=== PATIENT | female | born 1970 | race Caucasian/White ===

== ENCOUNTER 2017-07-06 21:38 | Inpatient (IN) ==
[2017-07-06] MEDS ORDERED: NITROGLYCERIN 2% OINT 1 INCH/GM PACK TOP STA (22:15)
[2017-07-06] MEDS ORDERED: MORPHINE 2 MG/1 ML SYRINGE IV STA (22:15)
[2017-07-06] MEDS ORDERED: ASPIRIN 325 MG TABLET PO STA (22:15)
[2017-07-06] MEDS ORDERED: hydrALAZINE 20 MG/1 ML VIAL IV STA ×2 (22:15→23:37)
[2017-07-06] MEDS ORDERED: methylPREDNISolone SOD SUC 125 MG/2 ML VIAL IV STA (22:15)
[2017-07-06] MEDS ORDERED: FUROSEMIDE 100 MG/10 ML VIAL IV STA (22:15)
[2017-07-06] MEDS ORDERED: ONDANSETRON 4 MG/2 ML VIAL IV STA (22:15)
[2017-07-06] MEDS ORDERED: ALBUTEROL 2.5 MG/3 ML NEB RESP TX SCH (22:30)
[2017-07-06] MEDS ORDERED: FUROSEMIDE 100 MG/10 ML VIAL ONE (22:37)
[2017-07-06] MEDS ORDERED: hydrALAZINE 20 MG/1 ML VIAL ONE ×2 (22:37→23:51)
[2017-07-06] MEDS ORDERED: NITROGLYCERIN 2% OINT 1 INCH/GM PACK TOP ONE (22:37)
[2017-07-06] MEDS ORDERED: ASPIRIN 325 MG TABLET ONE (22:37)
[2017-07-06] MEDS ORDERED: ONDANSETRON 4 MG/2 ML VIAL ONE (22:37)
[2017-07-06] MEDS ORDERED: MORPHINE 2 MG/1 ML SYRINGE ONE (22:37)
[2017-07-06] MEDS ORDERED: methylPREDNISolone SOD SUC 125 MG/2 ML VIAL ONE (22:38)
[2017-07-06 22:40] LABS: Basophils # 0.1 10*3/uL (0.0-0.2); Basophils % 0.7 % (0.0-0.8); Eosinophils # 0.3 10*3/uL (0.0-0.87); Eosinophils % 2.4 % (0.00-10.9); Hematocrit 37.2 VOL% (35.7-47.0); Hemoglobin 12.1 GM/DL (12.0-16.0); Immature Granulocytes % 0.9 %; Immature Granulocytes Absolute 0.12 #; Lymphocytes # 1.6 10*3/uL (1.4-4.0); Lymphocytes % 11.9 % (21.3-54.2); Mean Corpuscular HGB Conc 32.5 GM/DL (32-36); Mean Corpuscular Hemoglobin 29 PG (27-34); Mean Corpuscular Volume 90.5 FL (87-102); Mean Platelet Volume 9.3 FL (9.6-12.0); Monocytes # 1.1 10*3/uL (0.11-0.8); Neutrophils # 10.4 10*3/uL (1.4-7.4); Neutrophils % 76.1 % (38.7-73.9); Platelet Count 291 T/CUMM (130-400); Red Blood Count 4.11 MC/CUMM (3.8-5.5); White Blood Count 13.6 T/CUMM (4-12)
[2017-07-06 23:06] LABS: INR 0.9; PT Patient Result 9.9 SECS
[2017-07-06] MEDS ORDERED: ALBUTEROL/IPRATROPIUM 3 ML NEB RESP TX STA (23:08)
[2017-07-06 23:12] LABS: Alanine Aminotransferase 48 U/L (13-56); Albumin 3.5 G/DL (3.4-5.0); Alkaline Phosphatase 106 U/L (45-117); Aspartate Amino Transferase 19 U/L (0-37); Bilirubin,Total < 0.39 MG/DL (0.2-1.0); Blood Urea Nitrogen 19 MG/DL (7-18); Calcium 8.8 MG/DL (8.5-10.1); Glucose 102 MG/DL (74-106); Magnesium 2.3 MG/DL (1.8-2.4); Osmolality,Calculated 287.8 MOS/KG (273-304); Potassium 3.8 MMOL/L (3.5-5.1); Sodium 144 MMOL/L (136-145); Total Protein 6.8 G/DL (6.4-8.3); Troponin I Only 0.019 NG/ML (0.00-0.045)
[2017-07-06 23:47] LABS: Apearance,Urine Slightly Hazy (Clear); Bacteria,Urine Moderate /HPF (Few); Bilirubin,Urine Negative (Negative); Blood, Urine Negative (Negative); Glucose,Urine (UA) Negative (Negative); Ketones,Urine Negative (Negative); Mucus,Urine Occasional /LPF (Occasional); Nitrite,Urine Negative (Negative); Protein,Urine 30 MG/DL; Squamous Epithelial Cell,Urine Occasional /HPF (0-10); Urine Color Straw (Yellow); Urine Specific Gravity 1.005 (1.001-1.035); Urine Urobilinogen < 2.0 EU/DL (0.2-1.0); WBC,Urine 2 /HPF (0-6)
[2017-07-07] MEDS ORDERED: ONDANSETRON 4 MG/2 ML VIAL IV PRN (01:28)
[2017-07-07] MEDS ORDERED: MORPHINE 2 MG/1 ML SYRINGE IV PRN (01:28)
[2017-07-07] MEDS ORDERED: hydrALAZINE 20 MG/1 ML VIAL IV PRN (01:28)
[2017-07-07] MEDS ORDERED: ASPIRIN 325 MG TABLET PO STA (01:38)
[2017-07-07] MEDS: SODIUM CHLORIDE 0.9% 1,000 ML IV SCH (01:57)
[2017-07-07] MEDS: ACETAMINOPHEN 325 MG TABLET PO PRN (04:51)
[2017-07-07 05:37] LABS: Basophils # 0.1 10*3/uL (0.0-0.2); Basophils % 0.5 % (0.0-0.8); Eosinophils % 0.2 % (0.00-10.9); Hematocrit 39.2 VOL% (35.7-47.0); Hemoglobin 12.5 GM/DL (12.0-16.0); Immature Granulocytes % 1.1 %; Immature Granulocytes Absolute 0.15 #; Lymphocytes % 7.6 % (21.3-54.2); Mean Corpuscular HGB Conc 31.9 GM/DL (32-36); Mean Corpuscular Hemoglobin 29 PG (27-34); Mean Corpuscular Volume 91.2 FL (87-102); Mean Platelet Volume 9.9 FL (9.6-12.0); Monocytes # 0.1 10*3/uL (0.11-0.8); Monocytes % 0.8 % (1.7-12.7); Neutrophils # 11.7 10*3/uL (1.4-7.4); Neutrophils % 89.8 % (38.7-73.9); Platelet Count 316 T/CUMM (130-400); Red Cell Distribution Width 13.2 % (9.3-17.3); White Blood Count 13.1 T/CUMM (4-12)
[2017-07-07] MEDS ORDERED: NITROGLYCERIN 2% OINT 1 INCH/GM PACK TOP SCH (06:00)
[2017-07-07 06:07] LABS: Albumin 3.5 G/DL (3.4-5.0); Bilirubin,Total 0.5 MG/DL (0.2-1.0); Calcium 8.5 MG/DL (8.5-10.1); Osmolality,Calculated 285.5 MOS/KG (273-304); Potassium 4.1 MMOL/L (3.5-5.1); Risk Ratio 5.33; Total Protein 7.4 G/DL (6.4-8.3); VLDL CHOLESTEROL 44.4 MG/DL
[2017-07-07] MEDS: ENOXAPARIN 40 MG/0.4 ML SYRINGE SUBCUT SCH (06:39)
[2017-07-07] MEDS: FUROSEMIDE 20 MG/2 ML VIAL IV SCH ×2 (08:48→15:17)
[2017-07-07] MEDS: ASPIRIN EC 325 MG TABLET PO SCH (08:51)
[2017-07-07] MEDS: DOCUSATE SODIUM 100 MG CAPSULE PO SCH ×2 (08:51→20:38)
[2017-07-07] MEDS: PANTOPRAZOLE 40 MG TABLET PO SCH (08:52)
[2017-07-07] MEDS: METOPROLOL TARTRATE 100 MG TABLET PO SCH ×2 (10:14→15:33)
[2017-07-07] MEDS: IRBESARTAN 150 MG TABLET PO SCH (10:14)
[2017-07-07] MEDS: hydroCHLOROthiazide 12.5 MG CAPSULE PO SCH (10:15)
[2017-07-07] MEDS: CARVEDILOL 25 MG TABLET PO SCH ×2 (15:46→20:38)
[2017-07-07] MEDS ORDERED: DOXAZOSIN 2 MG TABLET PO SCH ×2 (15:50→21:00)
[2017-07-07] MEDS: DOXAZOSIN 1 MG TABLET PO SCH ×2 (16:39→20:38)
[2017-07-07] MEDS ORDERED: ATORVASTATIN 20 MG TABLET PO SCH (21:00)
[2017-07-08 05:57] LABS: Basophils % 0.2 % (0.0-0.8); Eosinophils # 0.1 10*3/uL (0.0-0.87); Eosinophils % 0.6 % (0.00-10.9); Hematocrit 36.3 VOL% (35.7-47.0); Hemoglobin 11.3 GM/DL (12.0-16.0); Immature Granulocytes % 1.1 %; Immature Granulocytes Absolute 0.14 #; Lymphocytes # 2.4 10*3/uL (1.4-4.0); Lymphocytes % 18.8 % (21.3-54.2); Mean Corpuscular HGB Conc 31.1 GM/DL (32-36); Mean Corpuscular Hemoglobin 29 PG (27-34); Mean Platelet Volume 9.6 FL (9.6-12.0); Monocytes % 7.9 % (1.7-12.7); Neutrophils # 9.2 10*3/uL (1.4-7.4); Neutrophils % 71.4 % (38.7-73.9); Platelet Count 277 T/CUMM (130-400); Red Blood Count 3.86 MC/CUMM (3.8-5.5); Red Cell Distribution Width 13.5 % (9.3-17.3); White Blood Count 12.9 T/CUMM (4-12)
[2017-07-08] MEDS: ENOXAPARIN 40 MG/0.4 ML SYRINGE SUBCUT SCH (06:01)
[2017-07-08 06:25] LABS: Calcium 8.6 MG/DL (8.5-10.1); Magnesium 2.4 MG/DL (1.8-2.4); Osmolality,Calculated 292.1 MOS/KG (273-304); Potassium 3.7 MMOL/L (3.5-5.1)
[2017-07-08] MEDS ORDERED: ALBUTEROL/IPRATROPIUM 3 ML NEB RESP TX PRN (08:48)
[2017-07-08] MEDS ORDERED: FLUTICASONE 50 MCG NASAL SPRAY 16 GM BOTTLE BOTH NARES SCH (09:00)
[2017-07-08] MEDS: FUROSEMIDE 20 MG/2 ML VIAL IV SCH (09:45)
[2017-07-08] MEDS: hydroCHLOROthiazide 12.5 MG CAPSULE PO SCH (09:46)
[2017-07-08] MEDS: ASPIRIN EC 325 MG TABLET PO SCH (09:46)
[2017-07-08] MEDS: DOCUSATE SODIUM 100 MG CAPSULE PO SCH (09:46)
[2017-07-08] MEDS: IRBESARTAN 150 MG TABLET PO SCH (09:46)
[2017-07-08] MEDS: CARVEDILOL 25 MG TABLET PO SCH (09:46)
[2017-07-08] MEDS: PANTOPRAZOLE 40 MG TABLET PO SCH (09:46)
[2017-07-08] MEDS: DOXAZOSIN 1 MG TABLET PO SCH (09:47)
[2017-07-08] MEDS: ACETAMINOPHEN 325 MG TABLET PO PRN (09:51)
[2017-07-08] MEDS: SODIUM CHLORIDE 0.9% 1,000 ML IV SCH (14:54)
[2017-07-08 16:03] VITALS: BP 129/64
== END 2017-07-08 16:15 | disposition home or self-care (01) | DRG 305 ==
LOC: N.ED 21:38 → N.EDINP 07-07 00:25 → N.TELES 07-07 01:04 → N.TELEN 07-07 01:04
PROVIDERS: ADMIT Family Medicine; ATTEND Family Medicine

== ENCOUNTER 2019-04-18 06:30 | Observation (INO) ==
[2019-04-18] MEDS ORDERED: DIAZEPAM 5 MG TABLET PO ONE (07:33)
[2019-04-18] MEDS ORDERED: SODIUM CHLORIDE 0.45% 1,000 ML IV SCH (08:00)
[2019-04-18 08:51] LABS: Basophils # 0.1 10*3/uL (0.0-0.2); Basophils % 0.9 % (0.0-0.8); Eosinophils # 0.2 10*3/uL (0.0-0.87); Eosinophils % 3.9 % (0.00-10.9); Immature Granulocytes % 0.6 %; Immature Granulocytes Absolute 0.03 #; Mean Corpuscular Volume 95.1 FL (87-102); Mean Platelet Volume 9.9 FL (9.6-12.0); Monocytes % 9.9 % (1.7-12.7); Neutrophils % 66.7 % (38.7-73.9); Platelet Count 164 T/CUMM (130-400); Red Blood Count 2.63 MC/CUMM (3.8-5.5); Red Cell Distribution Width 12.5 % (9.3-17.3); White Blood Count 5.5 T/CUMM (4-12)
[2019-04-18 08:54] LABS: PT Patient Result 10.4 SECS (9.6-12.2); Partial Thromboplastin Time 25.7 SECS (20.8-36.0)
[2019-04-18] MEDS ORDERED: DIAZEPAM 5 MG TABLET ONE (08:58)
[2019-04-18 13:03] LABS: Basophils % 0.6 % (0.0-0.8); Eosinophils # 0.2 10*3/uL (0.0-0.87); Eosinophils % 3.4 % (0.00-10.9); Hematocrit 22.9 VOL% (35.7-47.0); Hemoglobin 7.2 GM/DL (12.0-16.0); Immature Granulocytes % 0.2 %; Immature Granulocytes Absolute 0.01 #; Lymphocytes # 0.9 10*3/uL (1.4-4.0); Lymphocytes % 19.6 % (21.3-54.2); Mean Corpuscular HGB Conc 31.4 GM/DL (32-36); Mean Corpuscular Volume 94.6 FL (87-102); Mean Platelet Volume 9.7 FL (9.6-12.0); Monocytes % 10.7 % (1.7-12.7); Neutrophils % 65.5 % (38.7-73.9); Platelet Count 155 T/CUMM (130-400); Red Blood Count 2.42 MC/CUMM (3.8-5.5); Red Cell Distribution Width 12.6 % (9.3-17.3); White Blood Count 4.7 T/CUMM (4-12)
[2019-04-18] MEDS ORDERED: DOCUSATE SODIUM 100 MG CAPSULE PO PRN (14:55)
[2019-04-18] MEDS ORDERED: ONDANSETRON 4 MG/2 ML VIAL IV PRN (14:55)
[2019-04-18] MEDS ORDERED: CLORAZEPATE 3.75 MG TABLET PO PRN (14:57)
[2019-04-18] MEDS ORDERED: ZALEPLON 5 MG CAPSULE PO PRN (14:57)
[2019-04-18] MEDS: ACETAMINOPHEN 325 MG TABLET PO PRN (16:46)
[2019-04-18 18:12] LABS: Hematocrit 22.8 VOL% (35.7-47.0); Hemoglobin 7.2 GM/DL (12.0-16.0)
[2019-04-18] MEDS ORDERED: ATORVASTATIN 20 MG TABLET PO SCH (21:00)
[2019-04-18] MEDS: FLUTICASONE 50 MCG NASAL SPRAY 16 GM BOTTLE BOTH NARES SCH (21:09)
[2019-04-19] MEDS: ACETAMINOPHEN 325 MG TABLET PO PRN (03:44)
[2019-04-19 06:08] LABS: Hematocrit 24.1 VOL% (35.7-47.0); Hemoglobin 7.6 GM/DL (12.0-16.0)
[2019-04-19 06:32] LABS: Calcium 8.7 MG/DL (8.5-10.1); Osmolality,Calculated 293.5 MOS/KG (273-304)
[2019-04-19] MEDS ORDERED: LEVOTHYROXINE 50 MCG TABLET PO SCH (07:00)
[2019-04-19] MEDS: FLUTICASONE 50 MCG NASAL SPRAY 16 GM BOTTLE BOTH NARES SCH (08:02)
[2019-04-19] MEDS ORDERED: ESTRADIOL 1 MG TABLET PO SCH (09:00)
[2019-04-19] MEDS ORDERED: CHLORTHALIDONE 25 MG TABLET PO SCH (09:00)
[2019-04-19] MEDS ORDERED: DOXAZOSIN 1 MG TABLET PO SCH (09:00)
[2019-04-19] MEDS ORDERED: LOSARTAN 25 MG TABLET PO SCH (09:00)
[2019-04-19 11:28] VITALS: BP 151/87
== END 2019-04-19 12:21 | disposition home or self-care (01) ==
LOC: N.RAD → N.SDSINP 06:30 → EDSTATUS 07:00 → N.4E 16:25 → UNDODEPREF 04-19 13:16
PROVIDERS: ADMIT Family Medicine; ATTEND Family Medicine

== ENCOUNTER 2020-11-27 11:44 | Inpatient (IN) ==
[2020-11-27] MEDS ORDERED: DILTIAZEM 50 MG/10 ML VIAL IV ONE ×2 (17:40→17:50)
[2020-11-27] MEDS ORDERED: CLORAZEPATE 3.75 MG TABLET PO PRN (19:00)
[2020-11-28] MEDS: ZALEPLON 5 MG CAPSULE PO PRN (01:14)
[2020-11-28 06:41] LABS: Basophils # 0.1 10*3/uL (0.0-0.2); Basophils % 0.7 % (0.0-0.8); Eosinophils # 0.4 10*3/uL (0.0-0.87); Hematocrit 29.3 VOL% (35.7-47.0); Hemoglobin 9.1 GM/DL (12.0-16.0); Immature Granulocytes % 0.5 %; Immature Granulocytes Absolute 0.05 #; Lymphocytes # 1.1 10*3/uL (1.4-4.0); Mean Corpuscular HGB Conc 31.1 GM/DL (32-36); Mean Corpuscular Volume 95.1 FL (87-102); Mean Platelet Volume 9.2 FL (9.6-12.0); Monocytes % 10.7 % (1.7-12.7); Neutrophils % 73.1 % (38.7-73.9); Platelet Count 322 T/CUMM (130-400); Red Blood Count 3.08 MC/CUMM (3.8-5.5); Red Cell Distribution Width 13.7 % (9.3-17.3); White Blood Count 9.7 T/CUMM (4-12)
[2020-11-28 07:16] LABS: Albumin 3.8 G/DL (3.4-5.0); Bilirubin,Total 0.6 MG/DL (0.2-1.0); Calcium 8.9 MG/DL (8.5-10.1); Potassium 3.7 MMOL/L (3.5-5.1); Total Protein 7.5 G/DL (6.4-8.2)
[2020-11-28] MEDS: METOPROLOL TARTRATE 25 MG TABLET PO SCH ×2 (09:29→20:40)
[2020-11-28] MEDS: ceFAZolin 1,000 MG VIAL INTRAPERIT SCH (15:54)
[2020-11-28] MEDS: SEVELAMER CARBONATE POWDER 2.4 GM PACK PO SCH (18:07)
[2020-11-28] MEDS ORDERED: ACETAMINOPHEN 325 MG TABLET PO PRN (19:53)
[2020-11-29] MEDS: ZALEPLON 5 MG CAPSULE PO PRN (00:01)
[2020-11-29 06:45] LABS: Basophils # 0.1 10*3/uL (0.0-0.2); Basophils % 0.7 % (0.0-0.8); Eosinophils # 0.3 10*3/uL (0.0-0.87); Eosinophils % 3.5 % (0.00-10.9); Hematocrit 28.8 VOL% (35.7-47.0); Hemoglobin 9.2 GM/DL (12.0-16.0); Immature Granulocytes % 0.8 %; Immature Granulocytes Absolute 0.07 #; Lymphocytes # 0.8 10*3/uL (1.4-4.0); Lymphocytes % 8.6 % (21.3-54.2); Mean Corpuscular HGB Conc 31.9 GM/DL (32-36); Mean Corpuscular Volume 94.1 FL (87-102); Mean Platelet Volume 9.1 FL (9.6-12.0); Monocytes % 9.2 % (1.7-12.7); Neutrophils % 77.2 % (38.7-73.9); Platelet Count 317 T/CUMM (130-400); Red Blood Count 3.06 MC/CUMM (3.8-5.5); Red Cell Distribution Width 13.6 % (9.3-17.3); White Blood Count 9.2 T/CUMM (4-12)
[2020-11-29 07:37] LABS: Alanine Aminotransferase < 9 U/L (13-56); Albumin 3.8 G/DL (3.4-5.0); Alkaline Phosphatase 100 U/L (45-117); Aspartate Amino Transferase 5 U/L (0-37); Bilirubin,Total < 0.39 MG/DL (0.2-1.0); Blood Urea Nitrogen 100 MG/DL (7-18); Calcium 8.5 MG/DL (8.5-10.1); Carbon Dioxide 21 MMOL/L (21-32); Estimated Glom Filtration Rate 2 ML/MIN; Glucose 137 MG/DL (74-106); Osmolality,Calculated 302.1 MOS/KG (273-304); Potassium 3.9 MMOL/L (3.5-5.1); Sodium 135 MMOL/L (136-145); Total Protein 7.6 G/DL (6.4-8.2)
[2020-11-29] MEDS: METOPROLOL TARTRATE 50 MG TABLET PO SCH ×2 (09:39→20:39)
[2020-11-29] MEDS: SEVELAMER CARBONATE POWDER 2.4 GM PACK PO SCH ×3 (09:40→16:56)
[2020-11-29] MEDS: ONDANSETRON 4 MG/2 ML VIAL IV PRN ×2 (12:54→18:33)
[2020-11-29] MEDS ORDERED: ZOLPIDEM 5 MG TABLET PO PRN (15:47)
[2020-11-29] MEDS: ceFAZolin 1,000 MG VIAL INTRAPERIT SCH (16:56)
[2020-11-29] MEDS ORDERED: DOXAZOSIN 4 MG TABLET PO SCH (21:00)
[2020-11-30 06:04] LABS: Basophils # 0.1 10*3/uL (0.0-0.2); Basophils % 0.7 % (0.0-0.8); Eosinophils # 0.2 10*3/uL (0.0-0.87); Eosinophils % 2.7 % (0.00-10.9); Hemoglobin 8.8 GM/DL (12.0-16.0); Immature Granulocytes % 0.4 %; Immature Granulocytes Absolute 0.03 #; Lymphocytes # 1.1 10*3/uL (1.4-4.0); Lymphocytes % 15.8 % (21.3-54.2); Mean Corpuscular HGB Conc 31.4 GM/DL (32-36); Mean Corpuscular Volume 93.3 FL (87-102); Mean Platelet Volume 9.2 FL (9.6-12.0); Monocytes % 10.6 % (1.7-12.7); Neutrophils % 69.8 % (38.7-73.9); Platelet Count 301 T/CUMM (130-400); Red Cell Distribution Width 13.6 % (9.3-17.3)
[2020-11-30 06:30] LABS: Alanine Aminotransferase < 6 U/L (13-56); Albumin 3.5 G/DL (3.4-5.0); Alkaline Phosphatase 88 U/L (45-117); Aspartate Amino Transferase < 3 U/L (0-37); Blood Urea Nitrogen 96 MG/DL (7-18); Calcium 8.1 MG/DL (8.5-10.1); Carbon Dioxide 23 MMOL/L (21-32); Estimated Glom Filtration Rate 2 ML/MIN; Glucose 98 MG/DL (74-106); Osmolality,Calculated 291.7 MOS/KG (273-304); Potassium 3.7 MMOL/L (3.5-5.1); Sodium 131 MMOL/L (136-145); Total Protein 7.1 G/DL (6.4-8.2)
[2020-11-30] MEDS: ONDANSETRON 4 MG/2 ML VIAL IV PRN (08:01)
[2020-11-30] MEDS: SEVELAMER CARBONATE POWDER 2.4 GM PACK PO SCH ×2 (08:02→09:58)
[2020-11-30 08:30] VITALS: BP 125/73
[2020-11-30] MEDS ORDERED: DOXAZOSIN 1 MG TABLET PO SCH (09:00)
[2020-11-30] MEDS: METOPROLOL TARTRATE 50 MG TABLET PO SCH (09:38)
== END 2020-11-30 11:51 | disposition home or self-care (01) | DRG 371 ==
LOC: N.5E 15:15 → SUATTDRO 15:15 → N.TELEN 19:11
PROVIDERS: ADMIT Internal Medicine; ATTEND Family Medicine

== ENCOUNTER 2021-01-20 11:16 | Inpatient (IN) ==
[2021-01-20 11:40] LABS: Basophils % 0.1 % (0.0-0.8); Hematocrit 23.2 VOL% (35.7-47.0); Hemoglobin 7.4 GM/DL (12.0-16.0); Immature Granulocytes % 0.7 %; Immature Granulocytes Absolute 0.11 #; Mean Corpuscular HGB Conc 31.9 GM/DL (32-36); Mean Corpuscular Volume 91.7 FL (87-102); Monocytes % 3.9 % (1.7-12.7); Neutrophils % 89.3 % (38.7-73.9); Platelet Count 285 T/CUMM (130-400); Red Blood Count 2.53 MC/CUMM (3.8-5.5); Red Cell Distribution Width 13.2 % (9.3-17.3); White Blood Count 15.7 T/CUMM (4-12)
[2021-01-20] MEDS ORDERED: DILTIAZEM 50 MG/10 ML VIAL IV ONE (11:49)
[2021-01-20 11:52] LABS: PT Patient Result 10.8 SECS (10.5-12.0); Partial Thromboplastin Time 22.2 SECS (23.9-33.8)
[2021-01-20] MEDS ORDERED: SODIUM CHLORIDE 0.9% 1,000 ML IV STA (12:07)
[2021-01-20 12:10] LABS: Alanine Aminotransferase < 9 U/L (13-56); Albumin 3.2 G/DL (3.4-5.0); Alkaline Phosphatase 80 U/L (45-117); Aspartate Amino Transferase 5 U/L (0-37); Blood Urea Nitrogen 120 MG/DL (7-18); Calcium 8.6 MG/DL (8.5-10.1); Carbon Dioxide 17 MMOL/L (21-32); Estimated Glom Filtration Rate 3 ML/MIN; Glucose 138 MG/DL (74-106); Osmolality,Calculated 314.7 MOS/KG (273-304); Potassium 5.2 MMOL/L (3.5-5.1); Sodium 138 MMOL/L (136-145); Total Protein 6.6 G/DL (6.4-8.2)
[2021-01-20 12:34] LABS: Thyroid Stimulating Hormone 0.504 uIU/ml (0.358-3.74)
[2021-01-20] MEDS ORDERED: MORPHINE 2 MG/1 ML SYRINGE IV STA (14:26)
[2021-01-20] MEDS ORDERED: ONDANSETRON 4 MG/2 ML VIAL IV STA (14:27)
[2021-01-20] MEDS ORDERED: ONDANSETRON 4 MG/2 ML VIAL ONE (14:27)
[2021-01-20] MEDS ORDERED: MORPHINE 4 MG/1 ML VIAL ONE (14:28)
[2021-01-20] MEDS ORDERED: MORPHINE 2 MG/1 ML SYRINGE IV PRN (17:41)
[2021-01-20] MEDS ORDERED: ACETAMINOPHEN 325 MG TABLET PO PRN (17:41)
[2021-01-20] MEDS ORDERED: CIPROFLOXACIN INJ 400 MG/200 ML PREMIX IV SCH (17:41)
[2021-01-20] MEDS ORDERED: PROMETHAZINE 25 MG/1 ML VIAL IM PRN (17:41)
[2021-01-20 18:02] LABS: Hematocrit 22.7 VOL% (35.7-47.0); Hemoglobin 6.8 GM/DL (12.0-16.0)
[2021-01-20] MEDS: metroNIDAZOLE INJ 500 MG/100 ML PREMIX IV SCH (18:41)
[2021-01-20] MEDS: SODIUM CHLORIDE 0.45% 1,000 ML IV SCH (18:43)
[2021-01-20] MEDS: DOCUSATE SODIUM 100 MG CAPSULE PO SCH (21:08)
[2021-01-21] MEDS: SODIUM CHLORIDE 0.45% 1,000 ML IV SCH (03:34)
[2021-01-21] MEDS: ONDANSETRON 4 MG/2 ML VIAL IV PRN ×3 (03:34→21:44)
[2021-01-21] MEDS: metroNIDAZOLE INJ 500 MG/100 ML PREMIX IV SCH ×2 (05:37→17:14)
[2021-01-21] MEDS ORDERED: HYOSCYAMINE 0.125 MG TABLET PO PRN (08:16)
[2021-01-21] MEDS: PANTOPRAZOLE 40 MG TABLET PO SCH (09:28)
[2021-01-21] MEDS: DOCUSATE SODIUM 100 MG CAPSULE PO SCH ×2 (09:28→21:49)
[2021-01-21] MEDS: METOPROLOL TARTRATE 50 MG TABLET PO SCH ×2 (09:28→21:49)
[2021-01-21] MEDS: ASPIRIN CHEW 81 MG TABLET PO SCH (09:28)
[2021-01-21] MEDS ORDERED: CIPROFLOXACIN INJ 400 MG/200 ML PREMIX IV SCH (10:00)
[2021-01-21] MEDS: DOXAZOSIN 1 MG TABLET PO SCH ×2 (10:03→21:49)
[2021-01-22 05:51] LABS: Basophils % 0.3 % (0.0-0.8); Eosinophils # 0.4 10*3/uL (0.0-0.87); Eosinophils % 3.7 % (0.00-10.9); Hematocrit 19.2 VOL% (35.7-47.0); Immature Granulocytes % 1.2 %; Immature Granulocytes Absolute 0.14 #; Lymphocytes # 0.9 10*3/uL (1.4-4.0); Lymphocytes % 7.6 % (21.3-54.2); Mean Corpuscular HGB Conc 31.3 GM/DL (32-36); Mean Corpuscular Volume 94.1 FL (87-102); Mean Platelet Volume 10.2 FL (9.6-12.0); Monocytes % 9.6 % (1.7-12.7); Neutrophils % 77.6 % (38.7-73.9); Platelet Count 243 T/CUMM (130-400); Red Blood Count 2.04 MC/CUMM (3.8-5.5); Red Cell Distribution Width 13.1 % (9.3-17.3); White Blood Count 11.3 T/CUMM (4-12)
[2021-01-22 06:11] LABS: Calcium 8.6 MG/DL (8.5-10.1); Potassium 4.8 MMOL/L (3.5-5.1)
[2021-01-22] MEDS: LEVOTHYROXINE 50 MCG TABLET PO SCH (06:17)
[2021-01-22] MEDS: metroNIDAZOLE INJ 500 MG/100 ML PREMIX IV SCH (06:17)
[2021-01-22] MEDS ORDERED: SODIUM CHLORIDE 0.9% 1,000 ML IV PRN (07:07)
[2021-01-22] MEDS: METOPROLOL TARTRATE 100 MG TABLET PO SCH ×2 (08:08→21:02)
[2021-01-22] MEDS: FERROUS SULFATE 325 MG TABLET PO SCH ×2 (08:08→21:02)
[2021-01-22] MEDS: DOXAZOSIN 1 MG TABLET PO SCH ×2 (08:08→21:02)
[2021-01-22] MEDS: ASPIRIN CHEW 81 MG TABLET PO SCH (08:08)
[2021-01-22] MEDS: DOCUSATE SODIUM 100 MG CAPSULE PO SCH ×2 (08:08→21:02)
[2021-01-22] MEDS: ONDANSETRON 4 MG/2 ML VIAL IV PRN ×2 (08:09→21:12)
[2021-01-22] MEDS: PANTOPRAZOLE 40 MG TABLET PO SCH (08:09)
[2021-01-22] MEDS ORDERED: ceFAZolin 1,000 MG VIAL IV PRN (14:08)
[2021-01-22] MEDS: PIPERACILLIN/TAZOBACTAM 3,375 MG in SODIUM CHLORIDE 0.9% 100 ML IV SCH ×2 (16:05→23:00)
[2021-01-23 05:30] LABS: Basophils % 0.2 % (0.0-0.8); Eosinophils # 0.6 10*3/uL (0.0-0.87); Eosinophils % 5.5 % (0.00-10.9); Hematocrit 22.3 VOL% (35.7-47.0); Immature Granulocytes % 1.9 %; Immature Granulocytes Absolute 0.19 #; Lymphocytes # 0.8 10*3/uL (1.4-4.0); Lymphocytes % 7.8 % (21.3-54.2); Mean Corpuscular HGB Conc 31.4 GM/DL (32-36); Mean Corpuscular Volume 93.3 FL (87-102); Mean Platelet Volume 10.4 FL (9.6-12.0); Monocytes % 9.1 % (1.7-12.7); Neutrophils % 75.5 % (38.7-73.9); Platelet Count 251 T/CUMM (130-400); Red Blood Count 2.39 MC/CUMM (3.8-5.5); Red Cell Distribution Width 13.2 % (9.3-17.3)
[2021-01-23 05:55] LABS: Calcium 8.5 MG/DL (8.5-10.1); Osmolality,Calculated 301.2 MOS/KG (273-304); Potassium 4.1 MMOL/L (3.5-5.1)
[2021-01-23] MEDS: LEVOTHYROXINE 50 MCG TABLET PO SCH (09:26)
[2021-01-23] MEDS: DOCUSATE SODIUM 100 MG CAPSULE PO SCH ×2 (09:26→21:26)
[2021-01-23] MEDS: PANTOPRAZOLE 40 MG TABLET PO SCH (09:26)
[2021-01-23] MEDS: ASPIRIN CHEW 81 MG TABLET PO SCH (09:26)
[2021-01-23] MEDS: FERROUS SULFATE 325 MG TABLET PO SCH ×2 (09:27→21:26)
[2021-01-23] MEDS: ONDANSETRON 4 MG TABLET PO PRN (09:27)
[2021-01-23] MEDS: METOPROLOL TARTRATE 100 MG TABLET PO SCH ×2 (09:27→21:26)
[2021-01-23] MEDS ORDERED: CEFUROXIME 500 MG TABLET PO SCH (10:00)
[2021-01-23] MEDS: DOXAZOSIN 1 MG TABLET PO SCH ×2 (11:37→21:26)
[2021-01-23] MEDS ORDERED: ZALEPLON 5 MG CAPSULE PO PRN (22:56)
[2021-01-24] MEDS: ONDANSETRON 4 MG TABLET PO PRN ×2 (05:14→08:47)
[2021-01-24 05:41] LABS: Basophils # 0.1 10*3/uL (0.0-0.2); Basophils % 0.4 % (0.0-0.8); Eosinophils # 0.7 10*3/uL (0.0-0.87); Eosinophils % 5.8 % (0.00-10.9); Hematocrit 23.5 VOL% (35.7-47.0); Hemoglobin 7.4 GM/DL (12.0-16.0); Immature Granulocytes % 2.2 %; Immature Granulocytes Absolute 0.26 #; Lymphocytes # 1.2 10*3/uL (1.4-4.0); Lymphocytes % 9.8 % (21.3-54.2); Mean Corpuscular HGB Conc 31.5 GM/DL (32-36); Mean Corpuscular Volume 92.9 FL (87-102); Mean Platelet Volume 10.2 FL (9.6-12.0); Monocytes % 11.7 % (1.7-12.7); Neutrophils % 70.1 % (38.7-73.9); Platelet Count 269 T/CUMM (130-400); Red Blood Count 2.53 MC/CUMM (3.8-5.5); Red Cell Distribution Width 13.2 % (9.3-17.3); White Blood Count 11.8 T/CUMM (4-12)
[2021-01-24 06:06] LABS: Calcium 8.4 MG/DL (8.5-10.1); Potassium 4.1 MMOL/L (3.5-5.1)
[2021-01-24] MEDS: LEVOTHYROXINE 50 MCG TABLET PO SCH (06:39)
[2021-01-24 08:35] LABS: Alanine Aminotransferase < 6 U/L (13-56); Albumin 2.7 G/DL (3.4-5.0); Alkaline Phosphatase 66 U/L (45-117); Aspartate Amino Transferase 5 U/L (0-37); Bilirubin,Indirect 0.7 MG/DL (0.0-1.0); Total Protein 6.2 G/DL (6.4-8.2)
[2021-01-24] MEDS: FERROUS SULFATE 325 MG TABLET PO SCH (08:47)
[2021-01-24] MEDS: DOCUSATE SODIUM 100 MG CAPSULE PO SCH (08:47)
[2021-01-24] MEDS: ASPIRIN CHEW 81 MG TABLET PO SCH (08:47)
[2021-01-24] MEDS: METOPROLOL TARTRATE 100 MG TABLET PO SCH (08:47)
[2021-01-24] MEDS: PANTOPRAZOLE 40 MG TABLET PO SCH (08:50)
[2021-01-24] MEDS: DOXAZOSIN 1 MG TABLET PO SCH (12:11)
[2021-01-24 12:46] VITALS: BP 137/58
== END 2021-01-24 16:13 | disposition home or self-care (01) | DRG 371 ==
LOC: N.ED 11:16 → N.EDINP 15:39 → N.TELES 17:24
PROVIDERS: ADMIT Family Medicine; ATTEND Family Medicine

== ENCOUNTER 2021-01-26 05:13 | Inpatient (IN) ==
[2021-01-26 06:07] LABS: Basophils # 0.1 10*3/uL (0.0-0.2); Basophils % 0.5 % (0.0-0.8); Eosinophils # 0.2 10*3/uL (0.0-0.87); Eosinophils % 1.8 % (0.00-10.9); Hematocrit 20.5 VOL% (35.7-47.0); Immature Granulocytes % 2.3 %; Immature Granulocytes Absolute 0.28 #; Lymphocytes # 0.7 10*3/uL (1.4-4.0); Lymphocytes % 5.9 % (21.3-54.2); Mean Corpuscular HGB Conc 31.2 GM/DL (32-36); Mean Platelet Volume 9.9 FL (9.6-12.0); Monocytes % 10.2 % (1.7-12.7); Neutrophils % 79.3 % (38.7-73.9); Platelet Count 311 T/CUMM (130-400); Red Blood Count 2.18 MC/CUMM (3.8-5.5); Red Cell Distribution Width 13.2 % (9.3-17.3); White Blood Count 12.1 T/CUMM (4-12)
[2021-01-26 06:09] LABS: Hemoglobin 6.4 GM/DL (12.0-16.0)
[2021-01-26] MEDS ORDERED: SODIUM CHLORIDE 0.9% 1,000 ML IV PRN (06:14)
[2021-01-26] MEDS ORDERED: PANTOPRAZOLE 40 MG VIAL IV STA (06:16)
[2021-01-26 06:26] LABS: Alanine Aminotransferase < 6 U/L (13-56); Albumin 2.4 G/DL (3.4-5.0); Alkaline Phosphatase 64 U/L (45-117); Aspartate Amino Transferase 4 U/L (0-37); Blood Urea Nitrogen 93 MG/DL (7-18); Calcium 7.8 MG/DL (8.5-10.1); Carbon Dioxide 26 MMOL/L (21-32); Estimated Glom Filtration Rate 3 ML/MIN; Glucose 134 MG/DL (74-106); Osmolality,Calculated 307.5 MOS/KG (273-304); Potassium 3.5 MMOL/L (3.5-5.1); Sodium 139 MMOL/L (136-145); Total Protein 5.8 G/DL (6.4-8.2)
[2021-01-26 06:39] LABS: Hypochromasia 1+; Microcytosis 1+; Platelet Estimate Adequate
[2021-01-26] MEDS: PANTOPRAZOLE 40 MG TABLET PO SCH (09:33)
[2021-01-26] MEDS: DOCUSATE SODIUM 100 MG CAPSULE PO SCH ×2 (09:33→20:23)
[2021-01-26] MEDS ORDERED: ZALEPLON 5 MG CAPSULE PO PRN (12:05)
[2021-01-26] MEDS ORDERED: EPOETIN BETA METHOXY PEG SUBCUT SCH (12:15)
[2021-01-26] MEDS: ONDANSETRON 4 MG/2 ML VIAL IV PRN ×2 (17:57→23:07)
[2021-01-26] MEDS: ceFAZolin 1,000 MG VIAL INTRAPERIT PRN (18:22)
[2021-01-26] MEDS: METOPROLOL TARTRATE 50 MG TABLET PO SCH (20:12)
[2021-01-26] MEDS: ZOLPIDEM 5 MG TABLET PO PRN (23:07)
[2021-01-27] MEDS: PROMETHAZINE 25 MG/1 ML VIAL IM PRN (02:01)
[2021-01-27 02:06] LABS: Basophils # 0.1 10*3/uL (0.0-0.2); Basophils % 0.4 % (0.0-0.8); Eosinophils # 0.3 10*3/uL (0.0-0.87); Eosinophils % 2.3 % (0.00-10.9); Hematocrit 21.9 VOL% (35.7-47.0); Hemoglobin 7.2 GM/DL (12.0-16.0); Immature Granulocytes % 4.1 %; Immature Granulocytes Absolute 0.56 #; Lymphocytes # 1.9 10*3/uL (1.4-4.0); Lymphocytes % 14.1 % (21.3-54.2); Mean Corpuscular HGB Conc 32.9 GM/DL (32-36); Mean Corpuscular Volume 90.1 FL (87-102); Mean Platelet Volume 9.5 FL (9.6-12.0); Monocytes % 11.5 % (1.7-12.7); Neutrophils % 67.6 % (38.7-73.9); Platelet Count 248 T/CUMM (130-400); Red Blood Count 2.43 MC/CUMM (3.8-5.5); Red Cell Distribution Width 14.7 % (9.3-17.3); White Blood Count 13.8 T/CUMM (4-12)
[2021-01-27 02:20] LABS: Calcium 7.4 MG/DL (8.5-10.1); Osmolality,Calculated 314.7 MOS/KG (273-304); Potassium 3.6 MMOL/L (3.5-5.1)
[2021-01-27 03:54] LABS: Eosinophils 2 % (0-10); Lymphocytes 12 % (20-55); Metamyelocytes 1 %; Myelocytes 1 %; Segmented Neutrophils 74 % (50-85); Total Cells Counted 100
[2021-01-27 03:55] LABS: Hypochromasia 1+; Platelet Estimate Normal; Reactive Lymphocytes 2+
[2021-01-27] MEDS: LEVOTHYROXINE 50 MCG TABLET PO SCH (06:03)
[2021-01-27] MEDS ORDERED: PANTOPRAZOLE 40 MG VIAL IV SCH (09:00)
[2021-01-27] MEDS ORDERED: LIDOCAINE 2% 5 ML VIAL ONE (09:07)
[2021-01-27] MEDS ORDERED: propofoL 200 MG/20 ML VIAL IV ONE ×2 (09:07→10:04)
[2021-01-27] MEDS: SODIUM CHLORIDE 0.9% 500 ML IV SCH (09:24)
[2021-01-27] MEDS: ONDANSETRON 4 MG/2 ML VIAL IV PRN (10:19)
[2021-01-27] MEDS: PANTOPRAZOLE 40 MG TABLET PO SCH (11:46)
[2021-01-27] MEDS: DOCUSATE SODIUM 100 MG CAPSULE PO SCH ×2 (11:47→21:10)
[2021-01-27] MEDS: METOPROLOL TARTRATE 50 MG TABLET PO SCH ×2 (11:58→21:10)
[2021-01-27 12:02] LABS: Hematocrit 21.2 VOL% (35.7-47.0); Hemoglobin 6.8 GM/DL (12.0-16.0)
[2021-01-27] MEDS: ceFAZolin 1,000 MG VIAL INTRAPERIT PRN (19:10)
[2021-01-28 05:52] LABS: Basophils # 0.1 10*3/uL (0.0-0.2); Basophils % 0.7 % (0.0-0.8); Eosinophils # 0.3 10*3/uL (0.0-0.87); Eosinophils % 2.3 % (0.00-10.9); Hematocrit 20.8 VOL% (35.7-47.0); Hemoglobin 7.2 GM/DL (12.0-16.0); Immature Granulocytes % 2.1 %; Immature Granulocytes Absolute 0.31 #; Lymphocytes # 1.5 10*3/uL (1.4-4.0); Mean Corpuscular HGB Conc 34.6 GM/DL (32-36); Mean Corpuscular Volume 88.1 FL (87-102); Mean Platelet Volume 9.4 FL (9.6-12.0); Monocytes % 8.4 % (1.7-12.7); Neutrophils % 76.5 % (38.7-73.9); Platelet Count 219 T/CUMM (130-400); Red Blood Count 2.36 MC/CUMM (3.8-5.5); Red Cell Distribution Width 14.8 % (9.3-17.3); White Blood Count 14.9 T/CUMM (4-12)
[2021-01-28 06:06] LABS: Calcium 7.6 MG/DL (8.5-10.1); Osmolality,Calculated 316.7 MOS/KG (273-304); Potassium 3.1 MMOL/L (3.5-5.1)
[2021-01-28] MEDS ORDERED: SODIUM CHLORIDE 0.9% 1,000 ML IV PRN (08:18)
[2021-01-28] MEDS: PANTOPRAZOLE 40 MG VIAL IV SCH ×2 (09:05→21:53)
[2021-01-28] MEDS: LEVOTHYROXINE 50 MCG TABLET PO SCH (09:06)
[2021-01-28] MEDS: DOCUSATE SODIUM 100 MG CAPSULE PO SCH ×2 (09:06→21:53)
[2021-01-28] MEDS: METOPROLOL TARTRATE 50 MG TABLET PO SCH ×3 (09:06→21:54)
[2021-01-28] MEDS: SODIUM CHLORIDE 0.9% 500 ML IV SCH (17:46)
[2021-01-28] MEDS: ceFAZolin 1,000 MG VIAL INTRAPERIT SCH (18:33)
[2021-01-28 19:10] LABS: Hematocrit 25.6 VOL% (35.7-47.0); Hemoglobin 8.8 GM/DL (12.0-16.0)
[2021-01-28] MEDS: ACETAMINOPHEN 325 MG TABLET PO PRN (19:19)
[2021-01-28] MEDS: ONDANSETRON 4 MG/2 ML VIAL IV PRN (19:21)
[2021-01-28] MEDS ORDERED: POTASSIUM CHLORIDE 10 MEQ TABLET PO ONE (20:44)
[2021-01-28] MEDS: ZOLPIDEM 5 MG TABLET PO PRN (23:52)
[2021-01-29 05:40] LABS: Basophils # 0.1 10*3/uL (0.0-0.2); Basophils % 0.6 % (0.0-0.8); Eosinophils # 0.4 10*3/uL (0.0-0.87); Hematocrit 24.1 VOL% (35.7-47.0); Hemoglobin 8.1 GM/DL (12.0-16.0); Immature Granulocytes % 1.7 %; Lymphocytes # 1.2 10*3/uL (1.4-4.0); Mean Corpuscular HGB Conc 33.6 GM/DL (32-36); Mean Corpuscular Volume 85.2 FL (87-102); Mean Platelet Volume 9.8 FL (9.6-12.0); Neutrophils % 76.7 % (38.7-73.9); Platelet Count 231 T/CUMM (130-400); Red Blood Count 2.83 MC/CUMM (3.8-5.5); Red Cell Distribution Width 16.4 % (9.3-17.3); White Blood Count 12.1 T/CUMM (4-12)
[2021-01-29 06:15] LABS: Calcium 7.7 MG/DL (8.5-10.1); Osmolality,Calculated 314.7 MOS/KG (273-304); Potassium 3.2 MMOL/L (3.5-5.1)
[2021-01-29] MEDS: LEVOTHYROXINE 50 MCG TABLET PO SCH (06:27)
[2021-01-29] MEDS: ONDANSETRON 4 MG/2 ML VIAL IV PRN ×3 (07:33→23:43)
[2021-01-29] MEDS ORDERED: EPOETIN BETA METHOXY PEG SUBCUT SCH (09:00)
[2021-01-29] MEDS: SODIUM CHLORIDE 0.9% 500 ML IV SCH (09:08)
[2021-01-29] MEDS: DOCUSATE SODIUM 100 MG CAPSULE PO SCH ×2 (10:30→20:32)
[2021-01-29] MEDS: METOPROLOL TARTRATE 50 MG TABLET PO SCH ×2 (11:14→21:51)
[2021-01-29] MEDS: PANTOPRAZOLE 40 MG VIAL IV SCH (12:24)
[2021-01-29] MEDS: PROMETHAZINE 25 MG/1 ML VIAL IM PRN ×2 (14:31→20:21)
[2021-01-29 16:36] LABS: Hematocrit 20.3 VOL% (35.7-47.0); Hemoglobin 6.9 GM/DL (12.0-16.0)
[2021-01-29] MEDS ORDERED: SODIUM CHLORIDE 0.9% 1,000 ML IV PRN ×4 (17:08→20:13)
[2021-01-29] MEDS ORDERED: ROCURONIUM 50 MG/5 ML VIAL IV ONE (18:09)
[2021-01-29] MEDS ORDERED: ETOMIDATE 40 MG/20 ML VIAL IV ONE (18:09)
[2021-01-29] MEDS ORDERED: propofoL 200 MG/20 ML VIAL IV ONE (18:09)
[2021-01-29] MEDS ORDERED: LIDOCAINE 2% 5 ML VIAL ONE (18:09)
[2021-01-29] MEDS ORDERED: METOPROLOL TARTRATE 5 MG/5 ML VIAL IV ONE (18:14)
[2021-01-29] MEDS ORDERED: fentaNYL 100 MCG/2 ML VIAL ONE (18:15)
[2021-01-29] MEDS ORDERED: MIDAZOLAM 2 MG/2 ML VIAL ONE (19:06)
[2021-01-29] MEDS: MORPHINE 2 MG/1 ML SYRINGE IV ONE ×2 (19:30→19:50)
[2021-01-29] MEDS ORDERED: PANTOPRAZOLE INJ 80 MG in SODIUM CHLORIDE 0.9% 100 ML IV ONE (19:30)
[2021-01-29] MEDS ORDERED: EPINEPHrine 1 MG/ML VIAL ONE (19:55)
[2021-01-29] MEDS ORDERED: SEVOFLURANE 1 UNIT/15 MINUTE INH ONE (20:04)
[2021-01-29] MEDS ORDERED: ONDANSETRON 4 MG/2 ML VIAL ONE (20:04)
[2021-01-29] MEDS ORDERED: PHENYLEPHRINE 1 MG/10 ML SYRINGE IV ONE (20:04)
[2021-01-29] MEDS ORDERED: SODIUM CHLORIDE 0.9% 1,000 ML IV ONE (20:04)
[2021-01-29] MEDS ORDERED: DEXAMETHASONE 4 MG/1 ML VIAL ONE (20:04)
[2021-01-29 20:05] LABS: Hematocrit 27.2 VOL% (35.7-47.0); Hemoglobin 8.8 GM/DL (12.0-16.0)
[2021-01-29 20:14] LABS: PT Patient Result 11.3 SECS (10.5-12.0)
[2021-01-29] MEDS: HYDROmorphone 2 MG/1 ML VIAL IV PRN ×2 (20:30→23:52)
[2021-01-29] MEDS: PANTOPRAZOLE INJ 200 MG in SODIUM CHLORIDE 0.9% 250 ML IV SCH (21:14)
[2021-01-30] MEDS: ceFAZolin 1,000 MG VIAL INTRAPERIT SCH (00:35)
[2021-01-30 00:52] LABS: Hematocrit 26.2 VOL% (35.7-47.0); Hemoglobin 8.8 GM/DL (12.0-16.0)
[2021-01-30 01:29] LABS: Alanine Aminotransferase < 6 U/L (13-56); Albumin 2.3 G/DL (3.4-5.0); Alkaline Phosphatase 54 U/L (45-117); Aspartate Amino Transferase 11 U/L (0-37); Blood Urea Nitrogen 137 MG/DL (7-18); Calcium 7.2 MG/DL (8.5-10.1); Carbon Dioxide 25 MMOL/L (21-32); Estimated Glom Filtration Rate 3 ML/MIN; Glucose 110 MG/DL (74-106); Osmolality,Calculated 325.3 MOS/KG (273-304); Sodium 141 MMOL/L (136-145); Total Protein 4.9 G/DL (6.4-8.2)
[2021-01-30 03:16] LABS: Basophils # 0.1 10*3/uL (0.0-0.2); Basophils % 0.4 % (0.0-0.8); Eosinophils # 0.1 10*3/uL (0.0-0.87); Eosinophils % 0.8 % (0.00-10.9); Hematocrit 24.2 VOL% (35.7-47.0); Hemoglobin 8.4 GM/DL (12.0-16.0); Immature Granulocytes % 1.5 %; Immature Granulocytes Absolute 0.22 #; Lymphocytes # 1.4 10*3/uL (1.4-4.0); Lymphocytes % 9.5 % (21.3-54.2); Mean Corpuscular HGB Conc 34.7 GM/DL (32-36); Mean Corpuscular Volume 85.5 FL (87-102); Mean Platelet Volume 9.3 FL (9.6-12.0); Neutrophils % 80.8 % (38.7-73.9); Platelet Count 197 T/CUMM (130-400); Red Blood Count 2.83 MC/CUMM (3.8-5.5); Red Cell Distribution Width 15.5 % (9.3-17.3); White Blood Count 14.4 T/CUMM (4-12)
[2021-01-30] MEDS: ONDANSETRON 4 MG/2 ML VIAL IV PRN (06:56)
[2021-01-30] MEDS: HYDROmorphone 2 MG/1 ML VIAL IV PRN ×4 (07:31→17:35)
[2021-01-30] MEDS: PROMETHAZINE 25 MG/1 ML VIAL IM PRN (07:40)
[2021-01-30] MEDS ORDERED: SODIUM CHLORIDE 0.9% 1,000 ML IV SCH (08:30)
[2021-01-30] MEDS: SODIUM CHLORIDE 0.9% 500 ML IV SCH (08:53)
[2021-01-30 09:09] LABS: Hematocrit 24.1 VOL% (35.7-47.0); Hemoglobin 8.4 GM/DL (12.0-16.0)
[2021-01-30] MEDS: METOPROLOL TARTRATE 50 MG TABLET PO SCH ×2 (09:39→21:39)
[2021-01-30] MEDS: DOCUSATE SODIUM 100 MG CAPSULE PO SCH ×2 (09:39→21:39)
[2021-01-30] MEDS: LEVOTHYROXINE 50 MCG TABLET PO SCH (09:39)
[2021-01-30 15:28] LABS: Hematocrit 24.1 VOL% (35.7-47.0); Hemoglobin 8.1 GM/DL (12.0-16.0)
[2021-01-30] MEDS: ONDANSETRON 4 MG TABLET PO PRN (23:26)
[2021-01-30] MEDS: ZOLPIDEM 5 MG TABLET PO PRN (23:26)
[2021-01-31] MEDS: ceFAZolin 1,000 MG VIAL INTRAPERIT SCH (00:23)
[2021-01-31] MEDS: PANTOPRAZOLE INJ 200 MG in SODIUM CHLORIDE 0.9% 250 ML IV SCH (01:31)
[2021-01-31 04:59] LABS: Basophils # 0.1 10*3/uL (0.0-0.2); Basophils % 0.5 % (0.0-0.8); Eosinophils # 0.3 10*3/uL (0.0-0.87); Eosinophils % 2.6 % (0.00-10.9); Hematocrit 21.3 VOL% (35.7-47.0); Hemoglobin 7.1 GM/DL (12.0-16.0); Immature Granulocytes % 1.5 %; Immature Granulocytes Absolute 0.18 #; Lymphocytes # 1.2 10*3/uL (1.4-4.0); Lymphocytes % 9.8 % (21.3-54.2); Mean Corpuscular HGB Conc 33.3 GM/DL (32-36); Mean Corpuscular Volume 88.4 FL (87-102); Mean Platelet Volume 9.7 FL (9.6-12.0); Monocytes % 6.3 % (1.7-12.7); Neutrophils % 79.3 % (38.7-73.9); Platelet Count 198 T/CUMM (130-400); Red Blood Count 2.41 MC/CUMM (3.8-5.5); Red Cell Distribution Width 15.6 % (9.3-17.3); White Blood Count 12.3 T/CUMM (4-12)
[2021-01-31 05:27] LABS: Alanine Aminotransferase < 6 U/L (13-56); Albumin 2.1 G/DL (3.4-5.0); Alkaline Phosphatase 54 U/L (45-117); Aspartate Amino Transferase 9 U/L (0-37); Blood Urea Nitrogen 117 MG/DL (7-18); Calcium 7.4 MG/DL (8.5-10.1); Carbon Dioxide 24 MMOL/L (21-32); Estimated Glom Filtration Rate 3 ML/MIN; Glucose 98 MG/DL (74-106); Osmolality,Calculated 319.1 MOS/KG (273-304); Sodium 142 MMOL/L (136-145); Total Protein 4.6 G/DL (6.4-8.2)
[2021-01-31] MEDS ORDERED: POTASSIUM CHLORIDE 20 MEQ TABLET PO ONE (07:43)
[2021-01-31] MEDS ORDERED: SODIUM CHLORIDE 0.9% 1,000 ML IV PRN (07:46)
[2021-01-31] MEDS: SODIUM CHLORIDE 0.9% 500 ML IV SCH (08:08)
[2021-01-31] MEDS: METOPROLOL TARTRATE 50 MG TABLET PO SCH ×3 (08:10→21:43)
[2021-01-31] MEDS: DOCUSATE SODIUM 100 MG CAPSULE PO SCH ×2 (08:12→21:43)
[2021-01-31] MEDS: LEVOTHYROXINE 50 MCG TABLET PO SCH (08:12)
[2021-01-31] MEDS: ONDANSETRON 4 MG TABLET PO PRN ×2 (08:20→23:57)
[2021-01-31] MEDS: HYDROmorphone 2 MG/1 ML VIAL IV PRN ×2 (09:51→16:40)
[2021-01-31] MEDS: PROMETHAZINE 25 MG/1 ML VIAL IM PRN ×2 (10:58→17:34)
[2021-01-31 13:15] LABS: Hematocrit 24.5 VOL% (35.7-47.0); Hemoglobin 8.1 GM/DL (12.0-16.0)
[2021-01-31] MEDS: ONDANSETRON 4 MG/2 ML VIAL IV PRN (15:29)
[2021-01-31] MEDS: ZOLPIDEM 5 MG TABLET PO PRN (23:57)
[2021-02-01] MEDS: ceFAZolin 1,000 MG VIAL INTRAPERIT SCH ×2 (00:01→23:08)
[2021-02-01] MEDS: PANTOPRAZOLE INJ 200 MG in SODIUM CHLORIDE 0.9% 250 ML IV SCH ×2 (00:54→20:49)
[2021-02-01] MEDS: HYDROmorphone 2 MG/1 ML VIAL IV PRN (02:03)
[2021-02-01 02:14] LABS: Basophils # 0.1 10*3/uL (0.0-0.2); Basophils % 0.6 % (0.0-0.8); Eosinophils # 0.5 10*3/uL (0.0-0.87); Eosinophils % 2.9 % (0.00-10.9); Hematocrit 25.6 VOL% (35.7-47.0); Hemoglobin 8.5 GM/DL (12.0-16.0); Immature Granulocytes % 1.3 %; Lymphocytes % 6.4 % (21.3-54.2); Mean Corpuscular HGB Conc 33.2 GM/DL (32-36); Mean Corpuscular Volume 87.1 FL (87-102); Mean Platelet Volume 9.8 FL (9.6-12.0); Monocytes % 6.5 % (1.7-12.7); Neutrophils % 82.3 % (38.7-73.9); Platelet Count 249 T/CUMM (130-400); Red Blood Count 2.94 MC/CUMM (3.8-5.5); Red Cell Distribution Width 15.1 % (9.3-17.3); White Blood Count 15.8 T/CUMM (4-12)
[2021-02-01 02:23] LABS: Calcium 7.4 MG/DL (8.5-10.1); Osmolality,Calculated 307.5 MOS/KG (273-304)
[2021-02-01] MEDS ORDERED: POTASSIUM CHLORIDE RIDER 10 MEQ/100 ML PREMIX IV ONE (07:09)
[2021-02-01] MEDS ORDERED: DILTIAZEM 25 MG/5 ML VIAL IV ONE (07:10)
[2021-02-01] MEDS: DILTIAZEM INJ 100 MG in SODIUM CHLORIDE 0.9% 100 ML IV SCH (07:30)
[2021-02-01] MEDS ORDERED: DILTIAZEM 50 MG/10 ML VIAL IV ONE (07:30)
[2021-02-01 08:02] LABS: Hematocrit 24.4 VOL% (35.7-47.0); Hemoglobin 8.2 GM/DL (12.0-16.0)
[2021-02-01] MEDS: LEVOTHYROXINE 50 MCG TABLET PO SCH (09:32)
[2021-02-01] MEDS: DOCUSATE SODIUM 100 MG CAPSULE PO SCH ×2 (09:32→20:43)
[2021-02-01] MEDS: METOPROLOL TARTRATE 50 MG TABLET PO SCH ×2 (09:32→20:43)
[2021-02-01] MEDS: SODIUM CHLORIDE 0.9% 500 ML IV SCH (11:39)
[2021-02-01] MEDS: ONDANSETRON 4 MG/2 ML VIAL IV PRN (17:23)
[2021-02-01] MEDS: PANTOPRAZOLE 40 MG TABLET PO SCH (20:37)
[2021-02-01] MEDS: ONDANSETRON 4 MG TABLET PO PRN (23:05)
[2021-02-01] MEDS: ZOLPIDEM 5 MG TABLET PO PRN (23:05)
[2021-02-02] MEDS: ACETAMINOPHEN 325 MG TABLET PO PRN (03:49)
[2021-02-02] MEDS: DILTIAZEM INJ 100 MG in SODIUM CHLORIDE 0.9% 100 ML IV SCH (07:38)
[2021-02-02] MEDS ORDERED: SODIUM CHLORIDE 0.9% 1,000 ML IV PRN (08:03)
[2021-02-02 08:37] LABS: Basophils # 0.1 10*3/uL (0.0-0.2); Basophils % 0.5 % (0.0-0.8); Eosinophils # 0.5 10*3/uL (0.0-0.87); Eosinophils % 3.1 % (0.00-10.9); Hematocrit 25.1 VOL% (35.7-47.0); Hemoglobin 8.4 GM/DL (12.0-16.0); Immature Granulocytes % 0.9 %; Immature Granulocytes Absolute 0.13 #; Lymphocytes # 1.2 10*3/uL (1.4-4.0); Lymphocytes % 7.9 % (21.3-54.2); Mean Corpuscular HGB Conc 33.5 GM/DL (32-36); Mean Corpuscular Volume 88.1 FL (87-102); Mean Platelet Volume 9.5 FL (9.6-12.0); Monocytes % 7.5 % (1.7-12.7); Neutrophils % 80.1 % (38.7-73.9); Platelet Count 255 T/CUMM (130-400); Red Blood Count 2.85 MC/CUMM (3.8-5.5); White Blood Count 14.8 T/CUMM (4-12)
[2021-02-02] MEDS: DOCUSATE SODIUM 100 MG CAPSULE PO SCH ×2 (09:09→21:39)
[2021-02-02] MEDS: LEVOTHYROXINE 50 MCG TABLET PO SCH (09:09)
[2021-02-02] MEDS: METOPROLOL TARTRATE 50 MG TABLET PO SCH ×2 (09:09→21:39)
[2021-02-02] MEDS: PANTOPRAZOLE 40 MG TABLET PO SCH ×2 (09:09→21:39)
[2021-02-02] MEDS: ONDANSETRON 4 MG/2 ML VIAL IV PRN ×2 (09:10→17:30)
[2021-02-02 09:11] LABS: Calcium 6.9 MG/DL (8.5-10.1); Osmolality,Calculated 302.4 MOS/KG (273-304); Potassium 3.4 MMOL/L (3.5-5.1)
[2021-02-02] MEDS: ONDANSETRON 4 MG TABLET PO PRN (22:29)
[2021-02-02] MEDS: ZOLPIDEM 5 MG TABLET PO PRN (22:30)
[2021-02-02] MEDS: ceFAZolin 1,000 MG VIAL INTRAPERIT SCH (23:30)
[2021-02-03 05:01] LABS: Basophils # 0.1 10*3/uL (0.0-0.2); Basophils % 0.5 % (0.0-0.8); Eosinophils # 0.3 10*3/uL (0.0-0.87); Eosinophils % 2.4 % (0.00-10.9); Hematocrit 29.5 VOL% (35.7-47.0); Hemoglobin 9.7 GM/DL (12.0-16.0); Immature Granulocytes % 1.2 %; Immature Granulocytes Absolute 0.17 #; Lymphocytes # 0.7 10*3/uL (1.4-4.0); Lymphocytes % 4.8 % (21.3-54.2); Mean Corpuscular HGB Conc 32.9 GM/DL (32-36); Mean Corpuscular Volume 88.1 FL (87-102); Mean Platelet Volume 9.1 FL (9.6-12.0); Monocytes % 8.2 % (1.7-12.7); Neutrophils % 82.9 % (38.7-73.9); Platelet Count 233 T/CUMM (130-400); Red Blood Count 3.35 MC/CUMM (3.8-5.5); Red Cell Distribution Width 15.3 % (9.3-17.3); White Blood Count 14.3 T/CUMM (4-12)
[2021-02-03 05:18] LABS: Calcium 7.6 MG/DL (8.5-10.1); Osmolality,Calculated 304.3 MOS/KG (273-304)
[2021-02-03 05:35] LABS: Anisocytosis 1+; Eosinophils 2 % (0-10); Lymphocytes 6 % (20-55); Nucleated Red Blood Cells 1 (0-5); Platelet Estimate Normal; Segmented Neutrophils 85 % (50-85); Total Cells Counted 100
[2021-02-03] MEDS ORDERED: POTASSIUM CHLORIDE 20 MEQ TABLET PO ONE (06:51)
[2021-02-03] MEDS: DILTIAZEM INJ 100 MG in SODIUM CHLORIDE 0.9% 100 ML IV SCH (08:02)
[2021-02-03] MEDS: METOCLOPRAMIDE 10 MG/10 ML UDCUP PO SCH ×4 (08:30→21:00)
[2021-02-03] MEDS: PANTOPRAZOLE 40 MG TABLET PO SCH ×2 (08:30→21:01)
[2021-02-03] MEDS: DOCUSATE SODIUM 100 MG CAPSULE PO SCH ×2 (08:30→21:01)
[2021-02-03] MEDS: METOPROLOL TARTRATE 50 MG TABLET PO SCH ×2 (08:30→21:01)
[2021-02-03] MEDS: POTASSIUM BICARB EFFERVESCENT 20 MEQ TAB.EFF PO SCH ×2 (08:30→21:01)
[2021-02-03] MEDS: LEVOTHYROXINE 50 MCG TABLET PO SCH (08:30)
[2021-02-03] MEDS: ALUMINUM/MAGNES/SIMETH MAX STR 30 ML UDCUP PO PRN ×2 (09:50→19:31)
[2021-02-03] MEDS ORDERED: ZALEPLON 5 MG CAPSULE PO PRN ×2 (17:32→22:18)
[2021-02-03] MEDS: ACETAMINOPHEN 325 MG TABLET PO PRN (19:32)
[2021-02-03] MEDS: ONDANSETRON 4 MG TABLET PO PRN (22:46)
[2021-02-03] MEDS: ceFAZolin 1,000 MG VIAL INTRAPERIT SCH (22:48)
[2021-02-03] MEDS ORDERED: ZOLPIDEM 5 MG TABLET PO PRN (23:00)
[2021-02-04] MEDS: ONDANSETRON 4 MG/2 ML VIAL IV PRN (03:53)
[2021-02-04] MEDS: PROMETHAZINE 25 MG/1 ML VIAL IM PRN (04:40)
[2021-02-04] MEDS ORDERED: POTASSIUM CHLORIDE 20 MEQ TABLET PO ONE (07:20)
[2021-02-04 08:08] LABS: Basophils # 0.1 10*3/uL (0.0-0.2); Basophils % 0.4 % (0.0-0.8); Eosinophils # 0.4 10*3/uL (0.0-0.87); Eosinophils % 2.9 % (0.00-10.9); Hemoglobin 10.6 GM/DL (12.0-16.0); Immature Granulocytes % 0.7 %; Immature Granulocytes Absolute 0.09 #; Lymphocytes # 0.9 10*3/uL (1.4-4.0); Lymphocytes % 6.4 % (21.3-54.2); Mean Corpuscular HGB Conc 33.1 GM/DL (32-36); Mean Corpuscular Volume 87.4 FL (87-102); Mean Platelet Volume 9.5 FL (9.6-12.0); Monocytes % 8.9 % (1.7-12.7); Neutrophils % 80.7 % (38.7-73.9); Platelet Count 268 T/CUMM (130-400); Red Blood Count 3.66 MC/CUMM (3.8-5.5); White Blood Count 13.7 T/CUMM (4-12)
[2021-02-04] MEDS: METOCLOPRAMIDE 10 MG/10 ML UDCUP PO SCH ×2 (08:20→12:09)
[2021-02-04] MEDS: POTASSIUM BICARB EFFERVESCENT 20 MEQ TAB.EFF PO SCH (08:20)
[2021-02-04] MEDS: LEVOTHYROXINE 50 MCG TABLET PO SCH (08:21)
[2021-02-04] MEDS: DOCUSATE SODIUM 100 MG CAPSULE PO SCH (08:21)
[2021-02-04] MEDS: PANTOPRAZOLE 40 MG TABLET PO SCH (08:21)
[2021-02-04] MEDS: METOPROLOL TARTRATE 50 MG TABLET PO SCH (08:21)
[2021-02-04 08:26] LABS: Calcium 8.1 MG/DL (8.5-10.1); Osmolality,Calculated 297.7 MOS/KG (273-304); Potassium 3.5 MMOL/L (3.5-5.1)
[2021-02-04] MEDS ORDERED: POTASSIUM BICARB EFFERVESCENT 20 MEQ TAB.EFF PO ONE (08:26)
[2021-02-04] MEDS: DILTIAZEM INJ 100 MG in SODIUM CHLORIDE 0.9% 100 ML IV SCH (08:42)
[2021-02-04 10:26] VITALS: BP 153/86
== END 2021-02-04 15:40 | disposition home or self-care (01) | DRG 377 ==
LOC: N.ED 05:13 → N.EDINP 07:33 → N.5E 08:44 → N.ICU 01-29 19:38
PROVIDERS: ADMIT Family Medicine; ATTEND Family Medicine